=== PATIENT | male | born 1960 | race Caucasian/White ===

== ENCOUNTER 2016-07-22 10:21 | Emergency (ER) | payer MEDICAID | END 2016-07-22 13:53 | disposition home or self-care (01) | DX: R60.0 Localized edema (principal); E11.42 Type 2 diabetes mellitus with diabetic polyneuropathy; K04.7 Periapical abscess without sinus; I10 Essential (primary) hypertension; Z79.84 Long term (current) use of oral hypoglycemic drugs; F17.200 Nicotine dependence, unspecified, uncomplicated ==

== ENCOUNTER 2017-02-26 13:33 | Outpatient (CLI) | payer MEDICAID ==
[2017-02-26 19:05] LABS: BASOPHILS # (AUTO) 0.1 10^3/uL (0.0-0.1); EOSINOPHILS # (AUTO) 0.4 10^3/uL (0.0-0.7); MEAN PLATELET VOLUME 7.6 fL (7.4-11.4); NEUTROPHILS % (AUTO) 56.9 %; NUCLEATED RED BLOOD CELLS AUTO 0.1 /100WBC
[2017-02-26 19:07] LABS: BASOPHILS % (AUTO) 1.1 %; EOSINOPHILS % (AUTO) 4.2 %; HCT - HEMATOCRIT 45.6 % (42.0-52.0); HGB - HEMOGLOBIN 15.4 g/dL (14.0-18.0); LYMPHOCYTES # (AUTO) 2.6 10^3/uL (1.5-3.5); LYMPHOCYTES % (AUTO) 29.4 %; MEAN CORPUSCULAR HEMOGLOBIN 30.9 pg (27.0-31.0); MEAN CORPUSCULAR HGB CONC 33.8 g/dL (32.0-36.0); MEAN CORPUSCULAR VOLUME 91.3 fL (80.0-94.0); MONOCYTES # (AUTO) 0.7 10^3/uL (0.0-1.0); MONOCYTES % (AUTO) 8.4 %; RED CELL DISTRIBUTION WIDTH 13.2 % (12.0-15.0); UNCORRECTED WHITE BLOOD COUNT 8.7 x10^3/uL; WHITE BLOOD COUNT 8.7 x10^3/uL (4.8-10.8)
[2017-02-26 19:40] LABS: ALBUMIN/GLOBULIN RATIO 1.3 (1.0-2.2); BILIRUBIN,TOTAL 0.6 mg/dL (0.2-1.0); BUN - BLOOD UREA NITROGEN 19 mg/dL (6-20); CALCIUM 8.9 mg/dL (8.5-10.3); CARBON DIOXIDE - CO2 26 mmol/L (21-32); CHLORIDE 106 mmol/L (101-111); CHOL/HDL RATIO 4.4 (<5.0); CHOLESTEROL 145 mg/dL; CREATININE 0.8 mg/dL (0.6-1.2); GFR - MDRD 100 (>89); GLUCOSE 92 mg/dL (70-100); HDL CHOLESTEROL 33 mg/dL; LDL/HDL RATIO 2.5 (<3.6); SODIUM 138 mmol/L (135-145); TOTAL PROTEIN 7.1 g/dL (6.7-8.2); TRIGLYCERIDES 142 mg/dL; VLDL CHOLESTEROL 28 mg/dL
[2017-02-26 20:14] LABS: HEMOGLOBIN A1C 0.73 g/dL
== END 2017-02-26 13:34 | disposition home or self-care (01) ==
LOC: LAB.N 13:33
PROVIDERS: ATTEND Nurse Practitioner Gerontology
DX: E11.9 Type 2 diabetes mellitus without complications (principal)
CPT/HCPCS: 36415; 80053; 80061; 82043; 83036; 85025

== ENCOUNTER 2017-08-29 00:39 | Emergency (ER) | payer MEDICAID ==
[2017-08-29] MEDS ORDERED: ASPIRIN CHEW 81 MG TABLET PO STA (00:54)
[2017-08-29] MEDS ORDERED: hydrALAZINE INJ 20 MG/ML VIAL IVP STA (00:55)
[2017-08-29] MEDS ORDERED: ONDANSETRON ODT 4 MG TABLET TL STA (01:09)
[2017-08-29 01:14] LABS: EOSINOPHILS # (AUTO) 0.5 10^3/uL (0.0-0.7); HGB - HEMOGLOBIN 17.7 g/dL (14.0-18.0); MEAN CORPUSCULAR HGB CONC 36.1 g/dL (32.0-36.0); MEAN PLATELET VOLUME 7.7 fL (7.4-11.4)
[2017-08-29 01:17] LABS: BASOPHILS % (AUTO) 0.3 %; EOSINOPHILS % (AUTO) 2.9 %; LYMPHOCYTES # (AUTO) 4.4 10^3/uL (1.5-3.5); LYMPHOCYTES % (AUTO) 27.7 %; MEAN CORPUSCULAR HEMOGLOBIN 31.6 pg (27.0-31.0); MEAN CORPUSCULAR VOLUME 87.6 fL (80.0-94.0); MONOCYTES # (AUTO) 1.3 10^3/uL (0.0-1.0); MONOCYTES % (AUTO) 8.2 %; NEUTROPHILS # (AUTO) 9.7 10^3/uL (1.5-6.6); NEUTROPHILS % (AUTO) 60.9 %; PLT - PLATELET COUNT 292 10^3/uL (130-450); RED BLOOD COUNT 5.62 10^6/uL (4.70-6.10); RED CELL DISTRIBUTION WIDTH 13.2 % (12.0-15.0); WHITE BLOOD COUNT 15.9 x10^3/uL (4.8-10.8)
--- NOTE | 2017-08-29 01:17 | ED Physician Documentation ---
PD HPI CHEST PAIN - Stated complaint Stated Complaint: CHEST PAIN,NAUSEA,FATIGUE - Chief complaint Chief Complaint: Cardiac - History obtained from History obtained from: Patient - History of Present Illness Timing - onset: How many days ago (3) Timing - onset during: Rest Timing - details: Intermittant, Waxing and waning Quality: Pressure, Tightness Location: Substernal, Left chest, Right chest Worsened by: No: Exertion, Inspiration, Eating Associated symptoms: Nausea, General Weakness. No: Shortness of air, Diaphoresis, Vomiting Similar symptoms before: Work up / diagnostics Recently seen: Not recently seen - Additional information Additional information: Patient is a 57 year old male with a history of diabetes, and hypertension who smokes 2 packs a day who is presenting to the emergency department for chest pain. patient states that for the last three days he has had intermittent substernal chest pain. It normally gets better when he is active and worse when he lies down. Patient states that he also has some associated nausea. Patient reports that he had been out of his lisinopril but he just got it back today. Review of Systems Constitutional: denies: Fever, Chills Eyes: denies: Decreased vision, Photophobia Ears: denies: Ear pain Nose: denies: Congestion Throat: reports: Oral lesions / sores Cardiac: reports: Chest pain / pressure. denies: Palpitations Respiratory: denies: Dyspnea, Cough, Wheezing GI: reports: Abdominal Pain, Nausea, Diarrhea. denies: Vomiting : denies: Dysuria, Frequency, Hesitancy Skin: denies: Rash, Lesions Musculoskeletal: reports: Back pain Neurologic: denies: Focal weakness, Numbness, Headache, Head injury, LOC Immunocompromised: denies: Immunocompromised PD PAST MEDICAL HISTORY - Past Medical History Cardiovascular: Hypertension Respiratory: COPD Endocrine/Autoimmune: Type 2 diabetes GI: None : None HEENT: None Psych: Depression Musculoskeletal: None Derm: None - Past Surgical History Past Surgical History: Yes Ortho: Shoulder arthroplasty - Present Medications Home Medications: Ambulatory Orders Medication Instructions Recorded Confirmed RX: Gabapentin 300 mg PO BID #40 solution 07/22/16 RX: hydroCHLOROthiazide 25 mg PO DAILY #15 tablet 07/22/16 [Hydrochlorothiazide] RX: metFORMIN [Glucophage] 1,000 mg ORAL BID #120 tablet 07/22/16 Aripiprazole [Abilify] 20 mg PO DAILY 08/29/17 08/29/17 Ondansetron Odt [Zofran] 4 mg TL Q6H PRN #14 tablet 08/29/17 RX: Chlorhexidine Gluconate 15 ml MM TID #1 mouthwash 08/29/17 RX: Lisinopril 10 mg PO DAILY 08/29/17 08/29/17 RX: raNITIdine [Zantac] 150 mg PO DAILY 08/29/17 08/29/17 - Allergies Allergies/Adverse Reactions: Allergies Allergy/AdvReac Type Severity Reaction Status Date / Time No Known Drug Allergies Allergy Verified 08/29/17 00:46 - Social History Does the pt smoke?: Yes Smoking Status: Current every day smoker Does the pt drink ETOH?: No Does the pt have substance abuse?: No - Immunizations Immunizations are current?: Yes PD ED PE NORMAL - Vitals Vital signs reviewed: Yes - General General: Alert and oriented X 3 - HEENT HEENT: Atraumatic, PERRL - Neck Neck: Supple, no meningeal sign, No JVD - Cardiac Cardiac: RRR, No murmur - Respiratory Respiratory: No respiratory distress - Abdomen Abdomen: Soft, Non distended - Extremities Extremities: No deformity, No edema, No calf tenderness / cord - Neuro Neuro: Alert and oriented X 3, No motor deficit, Normal speech Eye Opening: Spontaneous Motor: Obeys Commands Verbal: Oriented GCS Score: 15 PD ED PE EXPANDED - General General: Alert, Disheveled, poorly kept, Other - HEENT HEENT: Dental decay. No: Dental TTP, Dental abscess - Derm Derm: Other (multiple tobacco stains on hands) Results - Vitals Vitals: Vital Signs - 24 hr 08/29/17 08/29/17 08/29/17 00:43 01:06 01:14 Temperature 36.4 C L Heart Rate 73 72 77 Respiratory 16 18 15 Rate Blood Pressure 173/100 H 165/104 H 134/86 H O2 Saturation 98 98 98 08/29/17 08/29/17 08/29/17 01:19 01:29 02:11 Temperature Heart Rate 74 76 70 Respiratory 18 16 18 Rate Blood Pressure 131/91 H 106/89 H 131/85 H O2 Saturation 97 97 97 Oxygen O2 Source Room air - EKG (time done) 0047 Rate: Rate (enter#) (72) Rhythm: NSR [place]: Normal Intervals: Normal TN QRS: Normal Ischemia: Normal ST segments Compare to prior EKG: Unchanged from prior EKG - Labs Labs: Laboratory Tests 08/29/17 08/29/17 08/29/17 00:50 00:50 00:50 WBC 15.9 H RBC 5.62 Hgb 17.7 Hct 49.2 MCV 87.6 MCH 31.6 H MCHC 36.1 H RDW 13.2 Plt Count 292 MPV 7.7 Neut # 9.7 H Lymph # 4.4 H [place] # 1.3 H Eos # 0.5 Baso # 0.0 Absolute Nucleated RBC 0.00 Nucleated RBC % 0.0 Sodium 135 Potassium 3.2 L Chloride 98 L Carbon Dioxide 27 Anion Gap 10.0 BUN 14 Creatinine 0.7 Estimated GFR (MDRD) 117 Glucose 136 H POC Whole Bld Glucose Calcium 9.0 Total Bilirubin 0.5 AST 13 ALT 11 Alkaline Phosphatase 64 Troponin I < 0.04 B-Natriuretic Peptide Total Protein 7.5 Albumin 4.2 Globulin 3.3 Albumin/Globulin Ratio 1.3 Lipase 16 L TSH Ethyl Alcohol < 5.0 08/29/17 08/29/17 08/29/17 00:50 00:50 00:55 WBC RBC Hgb Hct MCV MCH MCHC RDW Plt Count MPV Neut # Lymph # [place] # Eos # Baso # Absolute Nucleated RBC Nucleated RBC % Sodium Potassium Chloride Carbon Dioxide Anion Gap BUN Creatinine Estimated GFR (MDRD) Glucose POC Whole Bld Glucose 143 H Calcium Total Bilirubin AST ALT Alkaline Phosphatase Troponin I B-Natriuretic Peptide 30 Total Protein Albumin Globulin Albumin/Globulin Ratio Lipase TSH 3.23 Ethyl Alcohol - Rads (name of study) chest x-ray Radiology: Final report received (normal) PD MEDICAL DECISION MAKING - ED course Complexity details: reviewed old records, reviewed results, re-evaluated patient , considered differential, d/w patient ED course: Patient was seen and examined at bedside. ekg was performed and was normal sinus. IV access was gained and labs were drawn. patient was treated with aspirin and hydralizine 10mg. chest x-ray was ordered and was within normal limits. Patient's diagnostics were all within normal limits aside from a leukocytosis. When asked about possible infectious sources patient did have very terrible dentition but no drainable abscess. patient also has had nausea and diarrhea the last week. Patient had a HEART score of 3. Patient required no further inpatient work up at this time and was stable for discharge with outpatient follow up. Departure - Departure Disposition: 01 Home, Self Care Clinical Impression: Atypical chest pain Condition: Good Instructions: ED Chest Pain Atypical Unkn Cause Follow-Up: Olga Ferguson ARNP [Primary Care Provider] - Within 3 Days Prescriptions: RX: Chlorhexidine Gluconate 15 ml MM TID #1 mouthwash Ondansetron Odt [Zofran] 4 mg TL Q6H PRN #14 tablet PRN Reason: Nausea / Vomiting Comments: Your diagnostics today were within normal limits. That being said it is only a snapshot in time and it is important that you follow up with your doctor for an echocardiogram and a stress test. You have been prescribed anti nausea medicine and antibiotic mouth wash. You should return to the emergency department for new, worsening or uncontrollable symptoms. Discharge Date/Time: 08/29/17 02:27
--- NOTE | 2017-08-29 01:19 | XRAY Preliminary Report ---
Exam: XR CHEST 1 VIEW X-RAY IMPRESSION: 1. No acute abnormality seen in the chest. [facility] SITE ID: [id number]
--- NOTE | 2017-08-29 01:19 | XRAY Report ---
EXAM: CHEST RADIOGRAPHY EXAM DATE: 08/29/2017 01:07 AM. CLINICAL HISTORY: Chest pain. COMPARISON: 07/22/2016. TECHNIQUE: 1 view. FINDINGS: Lungs/Pleura: No alveolar consolidation or pleural effusion seen. No pneumothorax. Mediastinum: Within exam limitations, the cardiomediastinal contour is normal. Other: None. IMPRESSION: 1. No acute abnormality seen in the chest. [facility] Referring Provider Line: [phone] SITE ID: [id number]
[2017-08-29 01:23] LABS: ALBUMIN 4.2 g/dL (3.2-5.5); ALBUMIN/GLOBULIN RATIO 1.3 (1.0-2.2); ALKALINE PHOSPHATASE 64 IU/L (42-121); ALT ALANINE AMINOTRANSFERASE 11 IU/L (10-60); AST ASPARTATE AMINOTRANSFERASE 13 IU/L (10-42); BILIRUBIN,TOTAL 0.5 mg/dL (0.2-1.0); BUN - BLOOD UREA NITROGEN 14 mg/dL (6-20); CARBON DIOXIDE - CO2 27 mmol/L (21-32); CHLORIDE 98 mmol/L (101-111); CREATININE 0.7 mg/dL (0.6-1.2); GFR - MDRD 117 (>89); GLUCOSE 136 mg/dL (70-100); LIPASE 16 U/L (22-51); SODIUM 135 mmol/L (135-145); TOTAL PROTEIN 7.5 g/dL (6.7-8.2)
[2017-08-29 02:12] VITALS: BP 131/85
== END 2017-08-29 02:27 | disposition home or self-care (01) ==
LOC: ED 00:39
DX: R07.89 Other chest pain (principal); E11.9 Type 2 diabetes mellitus without complications; Z79.84 Long term (current) use of oral hypoglycemic drugs; I10 Essential (primary) hypertension; F17.200 Nicotine dependence, unspecified, uncomplicated
CPT/HCPCS: 36415; 71045; 80053; 80320; 83690; 83880; 84443; 84484; 85025; 93005; 96374; 99284; 99285; A9270; Q0162

== ENCOUNTER 2017-09-22 17:15 | Emergency (ER) | payer MEDICAID ==
[2017-09-22] MEDS ORDERED: SODIUM CHLORIDE 0.9% 1,000 ML IV ONE (17:34)
[2017-09-22] MEDS ORDERED: IPRATROPIUM/ALBUTEROL 3 ML NEB INH STA (17:34)
--- NOTE | 2017-09-22 17:37 | ED Physician Documentation ---
History of Present Illness - Stated complaint Stated Complaint: FATIGUE/SIDE PX/GRAHAM - Chief complaint Chief Complaint: General - History obtained from History obtained from: Patient - History of Present Illness Pain level max: 2 Pain level now: 2 Improved by: rest Worsened by: exertion - Additonal information Additional information: Patient is a 57-year-old male with a history of COPD and diabetes who presents to the emergency department feeling more tired and weak than usual today. He states he just wants to sleep. Feels like he is "coming down with something". No fevers. Has had rhinorrhea, congestion and cough. Also states has had chest pain for several months. Was seen here previously for this but never followed up with his doctor. When asked him why he did not follow up he said " I just had other things that I kept needing to do". Patient has never had a cardiac stress test. No recent travels. Still smoking 2 packs per day. Occasionally uses his inhaler "when I need it". Review of Systems Ten Systems: 10 systems reviewed and negative Constitutional: denies: Fever, Chills Ears: denies: Ear pain Nose: reports: Rhinorrhea / runny nose, Congestion Throat: denies: Sore throat Cardiac: reports: Chest pain / pressure (intermittent, aching, 1-2/) Respiratory: reports: Dyspnea, Cough, Wheezing GI: denies: Abdominal Pain, Nausea, Vomiting, Diarrhea Skin: denies: Rash Musculoskeletal: denies: Neck pain, Back pain Neurologic: denies: Headache PD PAST MEDICAL HISTORY - Past Medical History Past Medical History: Yes Cardiovascular: Hypertension Respiratory: COPD Neuro: Peripheral neuropathy Endocrine/Autoimmune: Type 2 diabetes GI: GERD, Other : None HEENT: None Psych: Depression Musculoskeletal: None Derm: None Other Past Medical History: IBS - Past Surgical History Past Surgical History: Yes Ortho: Shoulder arthroplasty - Present Medications Home Medications: Ambulatory Orders Medication Instructions Recorded Confirmed metFORMIN [Glucophage] 1,000 mg ORAL BID #120 tablet 07/22/16 09/22/17 Aripiprazole [Abilify] 20 mg PO DAILY 08/29/17 09/22/17 Lisinopril 10 mg PO DAILY 08/29/17 08/29/17 raNITIdine [Zantac] 150 mg PO DAILY 08/29/17 08/29/17 Albuterol Sulf [Ventolin Hfa 1 - 2 puffs INH Q4HR PRN #1 inhaler 09/22/17 Inhaler] - Allergies Allergies/Adverse Reactions: Allergies Allergy/AdvReac Type Severity Reaction Status Date / Time codeine AdvReac Itching Verified 09/22/17 17:22 - Social History Does the pt smoke?: Yes Smoking Status: Current every day smoker Does the pt drink ETOH?: No Does the pt have substance abuse?: Yes Substance Use and Type: Marijuana - Immunizations Immunizations are current?: No - POLST Patient has POLST: No PD ED PE NORMAL - Vitals Vital signs reviewed: Yes - General General: Alert and oriented X 3, No acute distress, Well developed/nourished - HEENT HEENT: PERRL, Moist mucous membranes - Neck Neck: Supple, no meningeal sign, No adenopathy - Cardiac Cardiac: RRR, Strong equal pulses - Respiratory Respiratory: No respiratory distress, Clear bilaterally - Abdomen Abdomen: Soft, Non tender, Non distended - Back Back: No CVA TTP, No spinal TTP - Derm Derm: Warm and dry - Extremities Extremities: No edema, No calf tenderness / cord - Neuro Neuro: Alert and oriented X 3 - Psych Psych: Normal mood, Normal affect Results - Vitals Vitals: Vital Signs - 24 hr 09/22/17 09/22/17 09/22/17 17:18 17:49 19:57 Temperature 36.6 C Heart Rate 81 76 77 Respiratory 18 18 18 Rate Blood Pressure 121/74 118/76 O2 Saturation 96 95 Oxygen O2 Source Room air - Labs Labs: Laboratory Tests 09/22/17 09/22/17 09/22/17 17:41 17:41 17:41 WBC 9.2 RBC 5.20 Hgb 16.2 Hct 46.6 MCV 89.5 MCH 31.2 H MCHC 34.8 RDW 12.9 Plt Count 227 MPV 7.3 L Neut # 7.4 H Lymph # 0.7 L [place] # 0.8 Eos # 0.2 Baso # 0.1 Absolute Nucleated RBC 0.00 Nucleated RBC % 0.0 Sodium 136 Potassium 3.8 Chloride 101 Carbon Dioxide 27 Anion Gap 8.0 BUN 13 Creatinine 0.8 Estimated GFR (MDRD) 100 Glucose 123 H POC Whole Bld Glucose Calcium 8.9 Total Bilirubin 0.5 AST 11 ALT 16 Alkaline Phosphatase 56 Troponin I < 0.04 Total Protein 7.3 Albumin 3.9 Globulin 3.4 Albumin/Globulin Ratio 1.1 Lipase 23 Urine Color Urine Clarity Urine pH Ur Specific [place] Urine Protein Urine Glucose (UA) Urine Ketones Urine Occult Blood Urine Nitrite Urine Bilirubin Urine Urobilinogen Ur Leukocyte Esterase Ur Microscopic Review Urine Culture Comments Influenza A (Rapid) Influenza B (Rapid) 09/22/17 09/22/17 09/22/17 18:01 18:16 19:20 WBC RBC Hgb Hct MCV MCH MCHC RDW Plt Count MPV Neut # Lymph # [place] # Eos # Baso # Absolute Nucleated RBC Nucleated RBC % Sodium Potassium Chloride Carbon Dioxide Anion Gap BUN Creatinine Estimated GFR (MDRD) Glucose POC Whole Bld Glucose 114 H Calcium Total Bilirubin AST ALT Alkaline Phosphatase Troponin I Total Protein Albumin Globulin Albumin/Globulin Ratio Lipase Urine Color YELLOW Urine Clarity CLEAR Urine pH 6.5 Ur Specific [place] 1.010 Urine Protein NEGATIVE Urine Glucose (UA) NEGATIVE Urine Ketones NEGATIVE Urine Occult Blood TRACE-LYSE Urine Nitrite NEGATIVE Urine Bilirubin NEGATIVE Urine Urobilinogen 0.2 (NORMAL) Ur Leukocyte Esterase NEGATIVE Ur Microscopic Review NOT INDICATED Urine Culture Comments NOT INDICATED Influenza A (Rapid) Negative Influenza B (Rapid) Negative - Rads (name of study) cxr Radiology: Prelim report reviewed, EMP read contemporaneously, See rad report ( no acute disease) PD MEDICAL DECISION MAKING - ED course Complexity details: reviewed results, re-evaluated patient, considered differential, d/w patient ED course: Patient is a 57-year-old male who presents to the emergency department with what appears to be a viral syndrome. He is well-appearing, nontoxic. Feels better after nebulizer treatment and IV fluids. Tolerating p.o. without difficulty. Abdomen is soft, nontender nondistended. Patient counseled to stop smoking. We will continue supportive care and follow-up with his doctor. No hypoxia. No respiratory distress. Patient counseled regarding signs and symptoms for which I believe and urgent re-evaluation would be necessary. Patient with good understanding of and agreement to plan and is comfortable going home at this time This document was made in part using voice recognition software. While efforts are made to proofread this document, sound alike and grammatical errors may occur. Departure - Departure Disposition: 01 Home, Self Care Clinical Impression: Dehydration, Viral syndrome Condition: Good Instructions: ED Dehydration, ED Viral Syndrome Follow-Up: Olga Ferguson ARNP [Primary Care Provider] - Within 1 week Prescriptions: Albuterol Sulf [Ventolin Hfa Inhaler] 1 - 2 puffs INH Q4HR PRN #1 inhaler PRN Reason: Shortness Of Air/Wheezing Comments: Return if you worsen. Drink plenty of fluids and rest. Discharge Date/Time: 09/22/17 19:58
[2017-09-22 17:46] LABS: BASOPHILS # (AUTO) 0.1 10^3/uL (0.0-0.1); BASOPHILS % (AUTO) 0.9 %; EOSINOPHILS # (AUTO) 0.2 10^3/uL (0.0-0.7); EOSINOPHILS % (AUTO) 2.1 %; HGB - HEMOGLOBIN 16.2 g/dL (14.0-18.0); LYMPHOCYTES # (AUTO) 0.7 10^3/uL (1.5-3.5); LYMPHOCYTES % (AUTO) 7.9 %; MEAN CORPUSCULAR HEMOGLOBIN 31.2 pg (27.0-31.0); MEAN CORPUSCULAR HGB CONC 34.8 g/dL (32.0-36.0); MEAN CORPUSCULAR VOLUME 89.5 fL (80.0-94.0); MEAN PLATELET VOLUME 7.3 fL (7.4-11.4); MONOCYTES # (AUTO) 0.8 10^3/uL (0.0-1.0); MONOCYTES % (AUTO) 8.3 %; NEUTROPHILS # (AUTO) 7.4 10^3/uL (1.5-6.6); NEUTROPHILS % (AUTO) 80.8 %; PLT - PLATELET COUNT 227 10^3/uL (130-450); RED CELL DISTRIBUTION WIDTH 12.9 % (12.0-15.0); WHITE BLOOD COUNT 9.2 x10^3/uL (4.8-10.8)
[2017-09-22 17:58] LABS: ALBUMIN 3.9 g/dL (3.2-5.5); ALBUMIN/GLOBULIN RATIO 1.1 (1.0-2.2); BILIRUBIN,TOTAL 0.5 mg/dL (0.2-1.0); CALCIUM 8.9 mg/dL (8.5-10.3); CREATININE 0.8 mg/dL (0.6-1.2); TOTAL PROTEIN 7.3 g/dL (6.7-8.2)
--- NOTE | 2017-09-22 18:02 | XRAY Report ---
EXAM: CHEST RADIOGRAPHY EXAM DATE: 09/22/2017 05:51 PM. CLINICAL HISTORY: Cough. COMPARISON: 08/29/2017 and 07/22/2016. TECHNIQUE: 2 views. FINDINGS: Lungs/Pleura: No localized infiltrate, consolidation, effusion, or pneumothorax. Mediastinum: Heart and mediastinal contours are unremarkable. Other: Degenerative changes. Chronic grade 3 AC joint separation on the right. IMPRESSION: No acute disease. [facility] Referring Provider Line: [phone] SITE ID: [id number]
[2017-09-22 19:32] LABS: BILIRUBIN,URINE NEGATIVE (NEGATIVE); GLUCOSE, URINE (UA) NEGATIVE (NEGATIVE); KETONES,URINE (UA) NEGATIVE (NEGATIVE); LEUKOCYTE ESTERASE, URINE NEGATIVE (NEGATIVE); NITRITE,URINE NEGATIVE (NEGATIVE); OCCULT BLOOD,URINE TRACE-LYSE (NEGATIVE); PH,URINE 6.5 PH (5.0-7.5); PROTEIN,URINE NEGATIVE (NEGATIVE); UROBILINOGEN,URINE 0.2 (NORMAL) E.U./dL (NORMAL)
[2017-09-22 19:34] LABS: CLARITY,URINE CLEAR (CLEAR)
[2017-09-22 19:58] VITALS: BP 118/76
== END 2017-09-22 19:58 | disposition home or self-care (01) ==
LOC: ED 17:15
DX: E86.0 Dehydration (principal); B34.9 Viral infection, unspecified; I10 Essential (primary) hypertension; E11.9 Type 2 diabetes mellitus without complications; F17.200 Nicotine dependence, unspecified, uncomplicated; Z79.84 Long term (current) use of oral hypoglycemic drugs
CPT/HCPCS: 36415; 71046; 80053; 81001; 81003; 83690; 84484; 85025; 87086; 87275; 87276; 93005; 94640; 94664; 99284

== ENCOUNTER 2018-04-02 20:58 | Emergency (ER) | payer MEDICAID ==
[2018-04-02 22:06] LABS: BASOPHILS % (AUTO) 2.8 %; HGB - HEMOGLOBIN 15.6 g/dL (14.0-18.0); LYMPHOCYTES % (AUTO) 22.1 %; MEAN CORPUSCULAR HEMOGLOBIN 31.9 pg (27.0-31.0); MEAN CORPUSCULAR HGB CONC 35.4 g/dL (32.0-36.0); MEAN CORPUSCULAR VOLUME 90.1 fL (80.0-94.0); MEAN PLATELET VOLUME 7.4 fL (7.4-11.4); MONOCYTES % (AUTO) 7.4 %; NEUTROPHILS % (AUTO) 64.7 %; PLT - PLATELET COUNT 342 10^3/uL (130-450); RED BLOOD COUNT 4.89 10^6/uL (4.70-6.10); RED CELL DISTRIBUTION WIDTH 12.9 % (12.0-15.0); WHITE BLOOD COUNT 11.7 x10^3/uL (4.8-10.8)
[2018-04-02 22:08] LABS: ABNORMAL LYMPHS % (MANUAL) 0 %
[2018-04-02 22:09] LABS: ALBUMIN 3.9 g/dL (3.2-5.5); ALBUMIN/GLOBULIN RATIO 1.3 (1.0-2.2); BILIRUBIN,TOTAL 0.8 mg/dL (0.2-1.0); CALCIUM 8.8 mg/dL (8.5-10.3); CREATININE 0.7 mg/dL (0.6-1.2)
--- NOTE | 2018-04-02 22:12 | ED Physician Documentation ---
PD HPI BACK PAIN - Stated complaint Stated Complaint: BK PX/SIDE PX - Chief complaint Chief Complaint: Back Pain - History obtained from History obtained from: Patient - History of Present Illness Timing - onset: How many days ago (6) Timing - details: Gradual onset, Intermittant, Waxing and waning Pain level max: 8 Pain level now: 3 Location: Mid, Lower, Right, Left Quality: Pain Associated symptoms: No: Fever, Weakness, Numbness, Incontinent of urine, Unable to urinate, Hematuria, Incontinent of stool Improves with: Nothing Worsened by: Other (no apparent inciting incident nor exacerbating factors) Similar symptoms before: Has not had sx before Recently seen: Not recently seen - Additional information Additional information: c/o episodic bilateral mid/lower back and flank pain that radiates around flanks to bilateral lower quadrants of abdomen Review of Systems Constitutional: denies: Fever, Chills, Sweats Cardiac: reports: Reviewed and negative Respiratory: reports: Reviewed and negative GI: reports: Abdominal Pain. denies: Nausea, Vomiting, Constipation, Diarrhea PD PAST MEDICAL HISTORY - Past Medical History Cardiovascular: Hypertension Respiratory: COPD Endocrine/Autoimmune: Type 2 diabetes GI: GERD, Other : None HEENT: None Psych: Depression Musculoskeletal: None Derm: None - Past Surgical History Past Surgical History: Yes Ortho: Shoulder arthroplasty - Present Medications Home Medications: Ambulatory Orders Medication Instructions Recorded Confirmed metFORMIN [Glucophage] 1,000 mg ORAL BID #120 tablet 07/22/16 09/22/17 Aripiprazole [Abilify] 20 mg PO DAILY 08/29/17 09/22/17 Lisinopril 10 mg PO DAILY 08/29/17 08/29/17 raNITIdine [Zantac] 150 mg PO DAILY 08/29/17 08/29/17 Albuterol Sulf [Ventolin Hfa 1 - 2 puffs INH Q4HR PRN #1 inhaler 09/22/17 Inhaler] Hydrocodone/Acetaminophen 1 - 2 each PO Q6HR PRN #14 tablet 04/03/18 [Hydrocodon-Acetaminophen 5-325] - Allergies Allergies/Adverse Reactions: Allergies Allergy/AdvReac Type Severity Reaction Status Date / Time codeine AdvReac Itching Verified 04/02/18 21:10 - Social History Does the pt smoke?: Yes Smoking Status: Current every day smoker Does the pt drink ETOH?: No Does the pt have substance abuse?: Yes - Immunizations Immunizations are current?: No - POLST Patient has POLST: No PD ED PE NORMAL - Vitals Vital signs reviewed: Yes - General General: Alert and oriented X 3, No acute distress, Well developed/nourished - Cardiac Cardiac: RRR, No murmur - Respiratory Respiratory: No respiratory distress, Clear bilaterally - Abdomen Abdomen: Soft, Non distended, Other (mild/moderate L>R LQ tenderness to palpation without rebound or guarding) - Back Back: No CVA TTP, No spinal TTP - Derm Derm: Normal color, Warm and dry, No rash Results - Vitals Vitals: Vital Signs - 24 hr 04/02/18 04/02/18 04/02/18 21:05 23:13 23:31 Temperature 36.8 C Heart Rate 82 Respiratory 17 16 16 Rate Blood Pressure 131/79 H O2 Saturation 96 04/02/18 04/03/18 04/03/18 23:47 00:19 01:00 Temperature Heart Rate 63 65 65 Respiratory 16 16 15 Rate Blood Pressure 125/79 120/81 H 103/65 O2 Saturation 95 95 96 04/03/18 04/03/18 01:32 01:38 Temperature Heart Rate 66 Respiratory 17 16 Rate Blood Pressure 128/82 H O2 Saturation 97 Oxygen O2 Source Room air - Labs Labs: Laboratory Tests 04/02/18 04/02/18 04/02/18 21:45 21:45 23:00 WBC 11.7 H RBC 4.89 Hgb 15.6 Hct 44.1 MCV 90.1 MCH 31.9 H MCHC 35.4 RDW 12.9 Plt Count 342 MPV 7.4 Neut # (Auto) Not Reportable Lymph # (Auto) Not Reportable [place] # (Auto) Not Reportable Eos # (Auto) Not Reportable Baso # (Auto) Not Reportable Absolute Nucleated RBC Not Reportable Total Counted 100 Band Neuts % (Manual) 5 Abnorm Lymph % (Manual) 0 Metamyelocytes % 1 H Nucleated RBC % Not Reportable Neutrophils # (Manual) 8.0 H Lymphocytes # (Manual) 2.9 Monocytes # (Manual) 0.7 Eosinophils # (Manual) 0.0 Basophils # (Manual) 0.0 Differential Comment MANUAL DIFFERENTIAL Manual Slide Review Indicated WBC Morphology NORMAL APPEARANCE Platelet Estimate NORMAL (130-450,000) Platelet Morphology NORMAL APPEARANCE RBC Morph Micro Appear NORMAL APPEARANCE Sodium 136 Potassium 3.4 L Chloride 100 L Carbon Dioxide 27 Anion Gap 9.0 BUN 13 Creatinine 0.7 Estimated GFR (MDRD) 116 Glucose 98 Calcium 8.8 Total Bilirubin 0.8 AST 14 ALT 13 Alkaline Phosphatase 54 Total Protein 7.0 Albumin 3.9 Globulin 3.1 Albumin/Globulin Ratio 1.3 Lipase 25 Urine Color YELLOW Urine Clarity CLEAR Urine pH 6.0 Ur Specific [place] 1.015 Urine Protein NEGATIVE Urine Glucose (UA) NEGATIVE Urine Ketones NEGATIVE Urine Occult Blood NEGATIVE Urine Nitrite NEGATIVE Urine Bilirubin NEGATIVE Urine Urobilinogen 0.2 (NORMAL) Ur Leukocyte Esterase NEGATIVE Ur Microscopic Review NOT INDICATED Urine Culture Comments NOT INDICATED - Rads (name of study) CT A/P Radiology: Prelim report reviewed, See rad report PD MEDICAL DECISION MAKING - ED course Complexity details: reviewed results, re-evaluated patient, considered diff erential, d/w patient ED course: Patient declined pain medication during ED stay. Given take-home pack of vicodin with rx for same; can use this if pain becomes more intense as it has, episodically, over the past 6 days. Departure - Departure Disposition: 01 Home, Self Care Clinical Impression: Back pain Condition: Good Instructions: ED Neck Back Pain General Follow-Up: Olga Ferguson ARNP [Primary Care Provider] - Within 1 week Prescriptions: Hydrocodone/Acetaminophen [Hydrocodon-Acetaminophen 5-325] 1 - 2 each PO Q6HR PRN #14 tablet PRN Reason: Pain Discharge Date/Time: 04/03/18 01:40
[2018-04-02 22:19] LABS: BAND NEUTROPHILS % (MANUAL) 5 %; DIFFERENTIAL COMMENT MANUAL DIFFERENTIAL; LYMPHOCYTES # (MANUAL) 2.9 10^3/uL (1.5-3.5); LYMPHOCYTES % (MANUAL) 25 %; METAMYELOCYTES % (MANUAL) 1 %; MONOCYTES # (MANUAL) 0.7 10^3/uL (0.0-1.0); NEUTROPHILS % (MANUAL) 63 %; PLATELET ESTIMATE, MANUAL NORMAL (130-450,000) (NORMAL); PLATELET MORPHOLOGY NORMAL APPEARANCE (NORMAL); RBC MORPHOLOGY (MULTIPLE) NORMAL APPEARANCE (NORMAL)
[2018-04-02 23:22] LABS: BILIRUBIN,URINE NEGATIVE (NEGATIVE); GLUCOSE, URINE (UA) NEGATIVE (NEGATIVE); KETONES,URINE (UA) NEGATIVE (NEGATIVE); LEUKOCYTE ESTERASE, URINE NEGATIVE (NEGATIVE); NITRITE,URINE NEGATIVE (NEGATIVE); OCCULT BLOOD,URINE NEGATIVE (NEGATIVE); PROTEIN,URINE NEGATIVE (NEGATIVE); UROBILINOGEN,URINE 0.2 (NORMAL) E.U./dL (NORMAL)
[2018-04-02 23:24] LABS: CLARITY,URINE CLEAR (CLEAR)
[2018-04-02] MEDS ORDERED: IOPAMIDOL-300 100 ML VIAL ONE (23:24)
[2018-04-02] MEDS ORDERED: IOPAMIDOL-300 100 ML VIAL IVP ONE (23:50)
--- NOTE | 2018-04-03 00:17 | CT Report ---
Reason: abd. pain, bilateral low Procedure Date: 04/02/2018 Accession Number: [id number] / [id number] Procedure: CT - Abdomen/Pelvis W/ CPT Code: FULL RESULT: EXAM: CT ABDOMEN AND PELVIS EXAM DATE: 04/02/2018 11:39 PM. CLINICAL HISTORY: Abdomen pain, bilateral low. COMPARISONS: Abdomen ultrasound 05/19/2013 3:06 PM. TECHNIQUE: Routine helical CT imaging was performed through the abdomen and pelvis. IV contrast: 100 mL Isovue 300. Enteric contrast: No. Reconstructions: Coronal and sagittal. In accordance with CT protocol optimization, one or more of the following dose reduction techniques were utilized for this exam: automated exposure control, adjustment of mA and/or KV based on patient size, or use of iterative reconstructive technique. FINDINGS: Lung Bases: Unremarkable. Liver: Unremarkable. No suspicious masses. Gallbladder/Bile Ducts: Unremarkable. Spleen: Unremarkable. Pancreas: Unremarkable. Adrenal Glands: Unremarkable. Kidneys: Unremarkable. No suspicious masses or hydronephrosis. Peritoneal Cavity/Bowel: No bowel obstruction or inflammatory process seen. No free air or significant free fluid. No masses or adenopathy. The appendix is normal. No excessive stool burden. Pelvic Organs: Bladder and prostate appear unremarkable. Vasculature: No aneurysms or other significant abnormality. Bones: No acute abnormality. Loss of normal lumbar lordosis and moderate degenerative changes of the lower lumbar spine. Other: Small fat-containing periumbilical hernia without apparent complication. IMPRESSION: No acute inflammatory or obstructive process seen in the abdomen or pelvis. [facility]
[2018-04-03] MEDS ORDERED: HYDROcod/ACET 5/325 Prepack 4 PO STA (01:18)
[2018-04-03 01:33] VITALS: BP 128/82
== END 2018-04-03 01:40 | disposition home or self-care (01) ==
LOC: ED 20:58
DX: M54.9 Dorsalgia, unspecified (principal); I10 Essential (primary) hypertension; E11.9 Type 2 diabetes mellitus without complications; Z79.84 Long term (current) use of oral hypoglycemic drugs; F17.200 Nicotine dependence, unspecified, uncomplicated
CPT/HCPCS: 36415; 74177; 80053; 81003; 83690; 85025; 99283; 99284; Q9967; 81001; 87086

== ENCOUNTER → 2018-04-16 | Outpatient (CLI) | payer MEDICAID ==
[2018-04-16 18:51] LABS: BASOPHILS # (AUTO) 0.1 10^3/uL (0.0-0.1); BASOPHILS % (AUTO) 1.2 %; EOSINOPHILS # (AUTO) 0.3 10^3/uL (0.0-0.7); EOSINOPHILS % (AUTO) 2.9 %; HGB - HEMOGLOBIN 16.1 g/dL (14.0-18.0); LYMPHOCYTES # (AUTO) 1.8 10^3/uL (1.5-3.5); LYMPHOCYTES % (AUTO) 21.2 %; MEAN CORPUSCULAR HEMOGLOBIN 31.7 pg (27.0-31.0); MEAN CORPUSCULAR HGB CONC 34.3 g/dL (32.0-36.0); MEAN CORPUSCULAR VOLUME 92.5 fL (80.0-94.0); MEAN PLATELET VOLUME 8.2 fL (7.4-11.4); MONOCYTES # (AUTO) 0.7 10^3/uL (0.0-1.0); MONOCYTES % (AUTO) 8.1 %; NEUTROPHILS # (AUTO) 5.7 10^3/uL (1.5-6.6); NEUTROPHILS % (AUTO) 66.6 %; PLT - PLATELET COUNT 317 10^3/uL (130-450); RED BLOOD COUNT 5.07 10^6/uL (4.70-6.10); WHITE BLOOD COUNT 8.6 x10^3/uL (4.8-10.8)
[2018-04-16 19:03] LABS: HB2 TOTAL 17.8 g/dL; HEMOGLOBIN A1C 1.07 g/dL; HEMOGLOBIN A1C % 7.7 % (4.6-6.2)
[2018-04-16 19:11] LABS: ALBUMIN/GLOBULIN RATIO 1.3 (1.0-2.2); ALKALINE PHOSPHATASE 59 IU/L (42-121); ALT ALANINE AMINOTRANSFERASE 16 IU/L (10-60); AST ASPARTATE AMINOTRANSFERASE 16 IU/L (10-42); BILIRUBIN,TOTAL 0.6 mg/dL (0.2-1.0); BUN - BLOOD UREA NITROGEN 15 mg/dL (6-20); CALCIUM 8.8 mg/dL (8.5-10.3); CARBON DIOXIDE - CO2 27 mmol/L (21-32); CHLORIDE 103 mmol/L (101-111); CHOL/HDL RATIO 5.5 (<5.0); CHOLESTEROL 177 mg/dL; CREATININE 0.7 mg/dL (0.6-1.2); GFR - MDRD 116 (>89); GLUCOSE 179 mg/dL (70-100); HDL CHOLESTEROL 32 mg/dL; LDL CHOLESTEROL,CALCULATED 88 mg/dL; LDL/HDL RATIO 2.8 (<3.6); SODIUM 139 mmol/L (135-145); TOTAL PROTEIN 7.2 g/dL (6.7-8.2); VLDL CHOLESTEROL 57 mg/dL
== END ==
LOC: LAB.N 11:29
PROVIDERS: ATTEND Nurse Practitioner Gerontology
DX: E78.2 Mixed hyperlipidemia (principal); I10 Essential (primary) hypertension; E11.9 Type 2 diabetes mellitus without complications
CPT/HCPCS: 36415; 80053; 80061; 83036; 83721; 85025

== ENCOUNTER 2018-07-22 08:00 | Outpatient (CLI) | payer MEDICAID ==
[2018-07-22 19:57] LABS: HB2 TOTAL 18.3 g/dL; HEMOGLOBIN A1C 1.07 g/dL; HEMOGLOBIN A1C % 7.5 % (4.6-6.2)
== END 2018-07-22 23:59 | disposition home or self-care (01) ==
LOC: LAB.N 08:00
PROVIDERS: ATTEND Nurse Practitioner Gerontology
DX: E11.9 Type 2 diabetes mellitus without complications (principal)
CPT/HCPCS: 36415; 83036

== ENCOUNTER 2018-07-22 11:45 | Outpatient (CLI) | payer MEDICAID | END 2018-07-22 23:59 | LOC: RT.N 11:45 | PROVIDERS: ATTEND Nurse Practitioner Gerontology | DX: R07.9 Chest pain, unspecified (principal) | CPT/HCPCS: 93005 ==

== ENCOUNTER 2019-05-23 14:32 | Outpatient (CLI) | payer MEDICAID ==
[2019-05-23 18:39] LABS: BASOPHILS % (AUTO) 0.5 %; EOSINOPHILS # (AUTO) 0.2 10^3/uL (0.0-0.7); EOSINOPHILS % (AUTO) 2.5 %; HGB - HEMOGLOBIN 16.8 g/dL (14.0-18.0); LYMPHOCYTES # (AUTO) 1.6 10^3/uL (1.5-3.5); LYMPHOCYTES % (AUTO) 21.2 %; MEAN CORPUSCULAR HEMOGLOBIN 31.1 pg (27.0-31.0); MEAN CORPUSCULAR HGB CONC 34.6 g/dL (32.0-36.0); MEAN CORPUSCULAR VOLUME 89.8 fL (80.0-94.0); MEAN PLATELET VOLUME 10.3 fL (7.4-11.4); MONOCYTES # (AUTO) 0.7 10^3/uL (0.0-1.0); MONOCYTES % (AUTO) 9.5 %; NEUTROPHILS % (AUTO) 65.6 %; PLT - PLATELET COUNT 251 10^3/uL (130-450); RED CELL DISTRIBUTION WIDTH 11.8 % (12.0-15.0); WHITE BLOOD COUNT 7.6 x10^3/uL (4.8-10.8)
[2019-05-23 19:07] LABS: HB2 TOTAL 16.6 g/dL; HEMOGLOBIN A1C 1.14 g/dL; HEMOGLOBIN A1C % 8.4 % (4.6-6.2)
[2019-05-23 19:34] LABS: ALBUMIN 4.1 g/dL (3.2-5.5); ALBUMIN/GLOBULIN RATIO 1.2 (1.0-2.2); ALKALINE PHOSPHATASE 66 IU/L (42-121); ALT ALANINE AMINOTRANSFERASE 18 IU/L (10-60); AST ASPARTATE AMINOTRANSFERASE 18 IU/L (10-42); BUN - BLOOD UREA NITROGEN 18 mg/dL (6-20); CALCIUM 9.1 mg/dL (8.5-10.3); CARBON DIOXIDE - CO2 27 mmol/L (21-32); CHLORIDE 99 mmol/L (101-111); CHOL/HDL RATIO 6.7 (<5.0); CHOLESTEROL 187 mg/dL; CREATININE 0.8 mg/dL (0.6-1.2); GFR - MDRD 99 (>89); GLUCOSE 212 mg/dL (70-100); HDL CHOLESTEROL 28 mg/dL; LDL CHOLESTEROL,CALCULATED 86 mg/dL; LDL/HDL RATIO 3.1 (<3.6); SODIUM 136 mmol/L (135-145); TOTAL PROTEIN 7.6 g/dL (6.7-8.2); VLDL CHOLESTEROL 73 mg/dL
== END 2019-05-23 23:59 | disposition home or self-care (01) ==
LOC: LAB.N 14:32
PROVIDERS: ATTEND Nurse Practitioner Gerontology
DX: E11.40 Type 2 diabetes mellitus with diabetic neuropathy, unspecified (principal); E78.2 Mixed hyperlipidemia; I10 Essential (primary) hypertension; F10.10 Alcohol abuse, uncomplicated; J44.9 Chronic obstructive pulmonary disease, unspecified
CPT/HCPCS: 36415; 80050; 80061; 83036; 83721

== ENCOUNTER 2019-05-29 14:52 | Outpatient (CLI) | payer MEDICAID ==
--- NOTE | 2019-05-29 15:50 | CT Report ---
Reason: TOBACCO ABUSE CONTINUOUS Procedure Date: 05/29/2019 Accession Number: [id number] / [id number] Procedure: CT - Low Dose Lung Cancer Screen CPT Code: Final Report FULL RESULT: EXAM CT LUNG SCREEN EXAM DATE: 05/29/2019 03:03 PM. HISTORY: 58-year-old patient with [id number] smoking history. Currently smoking: Yes. COMPARISON: None. TECHNIQUE: CT examination of the entire thorax without contrast was performed using low-dose technique. Thin section coronal, axial, sagittal and MIP axial images were obtained. In accordance with CT protocol optimization, one or more of the following dose reduction techniques were utilized for this exam: automated exposure control, adjustment of mA and/or KV based on patient size, or use of iterative reconstructive technique. FINDINGS: Nodules: Right upper lobe: None. Right middle lobe: 3 mm nodule image 71 series 4. Right lower lobe: None. Left upper lobe: None. Left lower lobe: None. Emphysema: None. Pleura: Unremarkable. Aorta: Mildly calcified. Mediastinum: Unremarkable. Coronary calcifications: Moderate. Other pulmonary findings: None. Other extrapulmonary findings: None. IMPRESSION: Lung-RADS ASSESSMENT CATEGORY: 2 - benign appearance of behavior. Probability of malignancy: Less than 1%. RECOMMENDATION: Continue annual low-dose screening CT. [facility]
== END 2019-05-29 14:53 | disposition home or self-care (01) ==
LOC: DI 14:52
PROVIDERS: ATTEND Nurse Practitioner Gerontology
DX: Z12.2 Encounter for screening for malignant neoplasm of respiratory organs (principal); F17.210 Nicotine dependence, cigarettes, uncomplicated

== ENCOUNTER 2019-12-26 13:50 | Emergency (ER) | payer MEDICAID ==
--- NOTE | 2019-12-26 13:54 | ED Physician Documentation ---
PD HPI HEENT - Stated complaint Stated Complaint: RT SIDE JAW PX - History obtained from History obtained from: Patient - History of Present Illness Timing - onset: How many days ago (few) Timing - duration: Days (few) Timing - details: Gradual onset, Still present Location: Tooth (right lower bicuspid, with pain and swelling over few days, large area of fluctuance that started draining today.) Review of Systems Constitutional: reports: Myalgias. denies: Fever, Chills Nose: denies: Rhinorrhea / runny nose, Congestion Throat: reports: Dental pain / toothache, Oral lesions / sores. denies: Sore throat Respiratory: denies: Cough GI: denies: Nausea, Vomiting Skin: denies: Rash, Lesions PD PAST MEDICAL HISTORY - Past Medical History Cardiovascular: Hypertension Respiratory: COPD Neuro: None Endocrine/Autoimmune: Type 2 diabetes GI: GERD, Other : None HEENT: None Psych: Depression Musculoskeletal: None Derm: None - Past Surgical History Past Surgical History: Yes Ortho: Shoulder arthroplasty - Present Medications Home Medications: Ambulatory Orders Medication Instructions Recorded Confirmed metFORMIN [Glucophage] 1,000 mg ORAL BID #120 tablet 07/22/16 09/22/17 Aripiprazole [Abilify] 20 mg PO DAILY 08/29/17 09/22/17 lisinopriL [Lisinopril] 10 mg PO DAILY 08/29/17 08/29/17 raNITIdine [Zantac] 150 mg PO DAILY 08/29/17 08/29/17 Albuterol Sulf [Ventolin Hfa 1 - 2 puffs INH Q4HR PRN #1 inhaler 09/22/17 Inhaler] Hydrocodone/Acetaminophen 1 - 2 each PO Q6HR PRN #14 tablet 04/03/18 [Hydrocodon-Acetaminophen 5-325] Chlorhexidine Gluconate [Peridex] 15 ml MM TID #118 ml 12/26/19 Clindamycin HCl [Clindamycin 300MG 300 mg PO TID #20 capsule 12/26/19 CAP] Ibuprofen [Motrin] 600 mg PO TID PRN #25 tab 12/26/19 Oxycodone HCl/Acetaminophen 1 each PO Q8H PRN #15 tablet 12/26/19 [Percocet 5-325 mg Tablet] - Allergies Allergies/Adverse Reactions: Allergies Allergy/AdvReac Type Severity Reaction Status Date / Time codeine AdvReac Itching Verified 12/26/19 13:56 - Social History Does the pt smoke?: Yes Smoking Status: Current every day smoker Does the pt drink ETOH?: No Does the pt have substance abuse?: Yes - Immunizations Immunizations are current?: No - POLST Patient has POLST: No PD ED PE NORMAL - Vitals Vital signs reviewed: Yes - General General: Alert and oriented X 3, No acute distress, Well developed/nourished - HEENT HEENT: Moist mucous membranes, Pharynx benign. No: Dentition benign (swelling and tenderness right lower gum, with small draining hole and no residual fluctuance. ) - Neck Neck: Supple, no meningeal sign, No adenopathy - Cardiac Cardiac: No murmur. No: RRR (regular but mild tachycardia. ) - Respiratory Respiratory: Clear bilaterally - Derm Derm: Normal color, Warm and dry - Neuro Neuro: Alert and oriented X 3, No motor deficit, Normal speech Results - Vitals Vitals: Vital Signs - 24 hr 12/26/19 13:54 Temperature 36.8 C Heart Rate 105 H Respiratory 22 Rate Blood Pressure 144/112 H O2 Saturation 97 Oxygen O2 Source Room air PD MEDICAL DECISION MAKING - ED course Complexity details: considered differential (abscess that is already draining. ), d/w patient Departure - Departure Disposition: 01 Home, Self Care Clinical Impression: Dental abscess Condition: Stable Record reviewed to determine appropriate education?: Yes Instructions: ED Abscess Dental Prescriptions: Clindamycin HCl [Clindamycin 300MG CAP] 300 mg PO TID #20 capsule Ibuprofen [Motrin] 600 mg PO TID PRN #25 tab PRN Reason: Pain Oxycodone HCl/Acetaminophen [Percocet 5-325 mg Tablet] 1 each PO Q8H PRN #15 tablet PRN Reason: pain Chlorhexidine Gluconate [Peridex] 15 ml MM TID #118 ml Comments: Rinse with antiseptic mouth rinse couple times a day. Use the ibuprofen anti-in flammatory 3 times a day with food for the next week. Add clindamycin antibiotic 3 times a day for a week as well. To this add Tylenol every 4 hours if needed for pain or Percocet if needed for worse pain. Recheck if not improving well over the next several days. Follow-up with dental clinic regarding more definitive care of the teeth and gums. Discharge Date/Time: 12/26/19 14:34
[2019-12-26 13:56] VITALS: BP 144/112
[2019-12-26] MEDS ORDERED: IBUPROFEN 600 MG TABLET PO STA (14:07)
[2019-12-26] MEDS ORDERED: CLINDAMYCIN 150 MG CAPSULE PO STA (14:07)
[2019-12-26] MEDS ORDERED: oxyCODONE 5 MG TABLET PO STA (14:07)
[2019-12-26] MEDS ORDERED: ACETAMINOPHEN 325 MG TABLET PO STA (14:07)
== END 2019-12-26 14:34 | disposition home or self-care (01) ==
LOC: ED 13:50
DX: K04.7 Periapical abscess without sinus (principal); I10 Essential (primary) hypertension; E11.9 Type 2 diabetes mellitus without complications; F17.200 Nicotine dependence, unspecified, uncomplicated; Z79.84 Long term (current) use of oral hypoglycemic drugs
CPT/HCPCS: 99283; 99284; A9270

== ENCOUNTER 2020-02-19 19:01 | Outpatient (CLI) | payer MEDICAID | END 2020-02-19 23:59 | disposition short-term general hospital (02) | LOC: EMS 19:01 | PROVIDERS: ATTEND Surgery | DX: R53.1 Weakness (principal); M79.602 Pain in left arm; M79.601 Pain in right arm; R07.9 Chest pain, unspecified | CPT/HCPCS: A0425; A0433; A0999 ==

== ENCOUNTER 2020-02-25 13:59 | Emergency (ER) | payer MEDICAID ==
[2020-02-25 14:22] LABS: BASOPHILS # (AUTO) 0.1 10^3/uL (0.0-0.1); BASOPHILS % (AUTO) 0.9 %; EOSINOPHILS # (AUTO) 0.3 10^3/uL (0.0-0.7); EOSINOPHILS % (AUTO) 2.9 %; LYMPHOCYTES # (AUTO) 2.6 10^3/uL (1.5-3.5); LYMPHOCYTES % (AUTO) 23.8 %; MEAN CORPUSCULAR HGB CONC 34.5 g/dL (32.0-36.0); MEAN PLATELET VOLUME 9.5 fL (7.4-11.4); MONOCYTES % (AUTO) 9.6 %; NEUTROPHILS # (AUTO) 6.7 10^3/uL (1.5-6.6); NEUTROPHILS % (AUTO) 61.8 %; PLT - PLATELET COUNT 334 10^3/uL (130-450); RED BLOOD COUNT 5.48 10^6/uL (4.70-6.10); RED CELL DISTRIBUTION WIDTH 11.9 % (12.0-15.0); WHITE BLOOD COUNT 10.9 x10^3/uL (4.8-10.8)
--- NOTE | 2020-02-25 14:37 | ED Physician Documentation ---
PD HPI CHEST PAIN - Stated complaint Stated Complaint: HIGH BLOOD SUGAR - Chief complaint Chief Complaint: Cardiac - History obtained from History obtained from: Patient - Additional information Additional information: Patient was transported to [facility] on the of this month for an inferior STEMI. He had 2 stents placed, both in the RCA. He was discharged 3 days ago. He has had migratory chest and abdominal pains ever since and notes that his blood sugars been high near 170. He has some confusion about how his meter works, he says that his primary care physician told him that his insulin should be administered intramuscularly and not subcutaneously. He is on metformin but only on half the dose his physician wanted him on because it gives him diarrhea. Pain is mild right now and in the right lower chest. It seems to move around a lot. He denies shortness of breath or nausea or sweats. Review of Systems Ten Systems: 10 systems reviewed and negative Constitutional: reports: Reviewed and negative Throat: denies: Dental pain / toothache, Sore throat Cardiac: denies: Pedal edema, Calf pain Respiratory: denies: Dyspnea, Cough, Hemoptysis, Wheezing PD PAST MEDICAL HISTORY - Past Medical History Cardiovascular: Hypertension Respiratory: COPD Neuro: None Endocrine/Autoimmune: Type 2 diabetes GI: GERD, Other : None HEENT: None Psych: Depression Musculoskeletal: None Derm: None - Past Surgical History Past Surgical History: Yes Ortho: Shoulder arthroplasty - Present Medications Home Medications: Ambulatory Orders Medication Instructions Recorded Confirmed metFORMIN [Glucophage] 1,000 mg ORAL BID #120 tablet 07/22/16 09/22/17 Aripiprazole [Abilify] 20 mg PO DAILY 08/29/17 09/22/17 lisinopriL [Lisinopril] 10 mg PO DAILY 08/29/17 08/29/17 raNITIdine [Zantac] 150 mg PO DAILY 08/29/17 08/29/17 Albuterol Sulf [Ventolin Hfa 1 - 2 puffs INH Q4HR PRN #1 inhaler 09/22/17 Inhaler] Hydrocodone/Acetaminophen 1 - 2 each PO Q6HR PRN #14 tablet 04/03/18 [Hydrocodon-Acetaminophen 5-325] Chlorhexidine Gluconate [Peridex] 15 ml MM TID #118 ml 12/26/19 Clindamycin HCl [Clindamycin 300MG 300 mg PO TID #20 capsule 12/26/19 CAP] Ibuprofen [Motrin] 600 mg PO TID PRN #25 tab 12/26/19 Oxycodone HCl/Acetaminophen 1 each PO Q8H PRN #15 tablet 12/26/19 [Percocet 5-325 mg Tablet] Glipizide [Glipizide ER] 5 mg PO DAILY #30 tab.er.24 02/25/20 - Allergies Allergies/Adverse Reactions: Allergies Allergy/AdvReac Type Severity Reaction Status Date / Time codeine AdvReac Itching Verified 12/26/19 13:56 - Social History Does the pt smoke?: Yes Smoking Status: Current every day smoker Does the pt drink ETOH?: No Does the pt have substance abuse?: Yes - Immunizations Immunizations are current?: No - POLST Patient has POLST: No PD ED PE NORMAL - Vitals Vital signs reviewed: Yes - General General: Alert and oriented X 3, No acute distress - HEENT HEENT: PERRL, EOMI - Neck Neck: Supple, no meningeal sign, No bony TTP - Cardiac Cardiac: RRR, No murmur - Respiratory Respiratory: No respiratory distress, Clear bilaterally - Abdomen Abdomen: Normal bowel sounds, Soft, Non tender - Back Back: No CVA TTP, No spinal TTP - Derm Derm: Normal color, Warm and dry - Extremities Extremities: No edema, No calf tenderness / cord - Neuro Neuro: Alert and oriented X 3, Normal speech Results - Vitals Vitals: Vital Signs - 24 hr 02/25/20 14:02 Temperature 35.8 C L Heart Rate 91 Respiratory 16 Rate Blood Pressure 136/90 H O2 Saturation 97 Oxygen O2 Source Room air - EKG (time done) 1412 Rate: Rate (enter#) (66) Rhythm: NSR [place]: Normal Intervals: Normal [place] QRS: Normal Ischemia: Normal ST segments Computer interpretation: Agree with computer - Labs Labs: Laboratory Tests 02/25/20 02/25/20 02/25/20 14:12 14:35 14:35 WBC 10.9 H RBC 5.48 Hgb 17.0 Hct 49.3 MCV 90.0 MCH 31.0 MCHC 34.5 RDW 11.9 L Plt Count 334 MPV 9.5 Neut # (Auto) 6.7 H Lymph # (Auto) 2.6 [place] # (Auto) 1.0 Eos # (Auto) 0.3 Baso # (Auto) 0.1 Absolute Nucleated RBC 0.00 Nucleated RBC % 0.0 Sodium 136 Potassium 3.9 Chloride 100 L Carbon Dioxide 26 Anion Gap 10.0 BUN 18 Creatinine 0.7 Estimated GFR (MDRD) 115 Glucose 143 H Calcium 9.2 Total Bilirubin 1.1 H AST 15 ALT 26 Alkaline Phosphatase 71 Troponin I High Sens 61.7 H* Total Protein 7.4 Albumin 4.0 Globulin 3.4 Albumin/Globulin Ratio 1.2 Lipase 25 - Rads (name of study) 1v chest Radiology: EMP read contemporaneously (NAD) PD MEDICAL DECISION MAKING - ED course ED course: 59-year-old gentleman who complains of migratory very atypical chest pains since discharge for an CT 3 days ago with stents in place. His EKG is not ischemic. He is also worried about his blood sugar. Discussed with him that he can slightly increase his dose of Lantus until his blood sugars controlled but probably should go back to subcutaneous. We can also add glipizide. Discussed case with Dr Bruce at [facility]. He reviewed cath report, mild (30%) LAD residual. Cx was clear. RCA stented. Chandler there was really no significant need for further work-up for this since he is clearly not having in-stent restenosis given the lack of heart findings and was not too concerned about the minimal troponin elevation. Departure - Departure Disposition: 01 Home, Self Care Clinical Impression: Atypical chest pain Condition: Good Record reviewed to determine appropriate education?: Yes Instructions: ED Chest Pain Atypical Unkn Cause Prescriptions: Glipizide [Glipizide ER] 5 mg PO DAILY #30 tab.er.24 Comments: You can stop the metformin and start the glipizide instead. This may decrease some of your GI symptoms from the metformin and hopefully improve your blood sugar control. I agree with you probably go back to putting your Lantus in the subcutaneous tissue as opposed to the muscle of your thigh. Return for new or worsening symptoms. Continue your efforts to quit smoking. Follow-up with your primary care physician and cash applications analyst as recommended on discharge from [facility].
--- NOTE | 2020-02-25 14:45 | XRAY Report ---
PROCEDURE: Chest 1 View X-Ray INDICATIONS: Chest Pain TECHNIQUE: One view of the chest was acquired. COMPARISON: 09/22/2017 FINDINGS: Surgical changes and devices: None. Lungs and pleura: No pleural effusions or pneumothorax. Lungs are clear. Mediastinum: Mediastinal contours appear normal. Heart size is normal. Bones and chest wall: No suspicious bony lesions. Chronic right AC separation. Overlying soft tissu es appear unremarkable. IMPRESSION: No acute process. Reviewed by: Allyssa Ba MD on 02/25/2020 1:44 PM AKDT Approved by: Allyssa Ba MD on 02/25/2020 1:44 PM AKDT Station ID: [id number]
[2020-02-25 14:59] LABS: ALBUMIN/GLOBULIN RATIO 1.2 (1.0-2.2); BILIRUBIN,TOTAL 1.1 mg/dL (0.2-1.0); CALCIUM 9.2 mg/dL (8.5-10.3); CREATININE 0.7 mg/dL (0.6-1.2); TOTAL PROTEIN 7.4 g/dL (6.7-8.2)
[2020-02-25] MEDS ORDERED: glipiZIDE 5 MG TABLET PO STA (15:43)
[2020-02-25 16:07] VITALS: BP 140/88
== END 2020-02-25 16:07 | disposition home or self-care (01) ==
LOC: ED 13:59
DX: R07.89 Other chest pain (principal); I25.2 Old myocardial infarction; Z95.5 Presence of coronary angioplasty implant and graft; E11.9 Type 2 diabetes mellitus without complications; Z79.4 Long term (current) use of insulin; I10 Essential (primary) hypertension; F17.200 Nicotine dependence, unspecified, uncomplicated
CPT/HCPCS: 36415; 71045; 80053; 83690; 84484; 85025; 93005; 99284; A9270

== ENCOUNTER 2020-10-04 14:01 | Outpatient (CLI) | payer MEDICAID ==
[2020-10-04 14:26] LABS: BASOPHILS # (AUTO) 0.1 10^3/uL (0.0-0.1); BASOPHILS % (AUTO) 0.7 %; EOSINOPHILS # (AUTO) 0.2 10^3/uL (0.0-0.7); HCT - HEMATOCRIT 45.5 % (42.0-52.0); HGB - HEMOGLOBIN 16.1 g/dL (14.0-18.0); LYMPHOCYTES # (AUTO) 2.7 10^3/uL (1.5-3.5); LYMPHOCYTES % (AUTO) 22.6 %; MEAN CORPUSCULAR HGB CONC 35.4 g/dL (32.0-36.0); MEAN CORPUSCULAR VOLUME 87.5 fL (80.0-94.0); MEAN PLATELET VOLUME 8.6 fL (7.4-11.4); MONOCYTES # (AUTO) 0.9 10^3/uL (0.0-1.0); MONOCYTES % (AUTO) 7.7 %; NEUTROPHILS # (AUTO) 7.8 10^3/uL (1.5-6.6); NEUTROPHILS % (AUTO) 66.3 %; PLT - PLATELET COUNT 347 10^3/uL (130-450); RED CELL DISTRIBUTION WIDTH 11.5 % (12.0-15.0); WHITE BLOOD COUNT 11.8 x10^3/uL (4.8-10.8)
[2020-10-04 14:32] LABS: INR 1.1 (0.8-1.2); PT - PROTHROMBIN TIME 12.3 secs (9.9-12.6)
[2020-10-04 14:37] LABS: CREATININE,URINE 48.3 mg/dL; MICROALBUMIN,URINE < 0.2 mg/dL (0-300.0)
[2020-10-04 14:39] LABS: CALCIUM 9.3 mg/dL (8.5-10.3); CREATININE 0.8 mg/dL (0.6-1.2); POTASSIUM 4.3 mmol/L (3.5-5.0)
[2020-10-04 20:53] LABS: ESTIMATED AVERAGE GLUCOSE 200 mg/dL (70-100); HEMOGLOBIN A1c% 8.6 % (4.27-6.07)
== END 2020-10-04 14:02 | disposition home or self-care (01) ==
LOC: LAB 14:01
PROVIDERS: ATTEND Nurse Practitioner Family
DX: E11.40 Type 2 diabetes mellitus with diabetic neuropathy, unspecified (principal); Z95.828 Presence of other vascular implants and grafts
CPT/HCPCS: 36415; 80048; 82043; 82570; 83036; 85025; 85610

== ENCOUNTER 2020-10-04 14:25 | Emergency (ER) | payer MEDICAID ==
--- OUTSIDE RECORDS SUMMARY | 2020-10-04 14:33 | EXTERNAL MEDICAL SUMMARY RPT | Continuity of Care Document ---
:1960 Demographics Phone Unavailable Preferred Language Unknown Marital Status Unknown Restoration Affiliation Unknown Race Unknown Ethnic Group Unknown Author Organization [facility] Address [address] [place] [address] Phone Social History date description facility [id number]
[2020-10-04 14:34] VITALS: BP 112/64
--- NOTE | 2020-10-04 14:38 | ED Physician Documentation ---
History of Present Illness - Stated complaint Stated Complaint: left sided tooth px - Chief complaint Chief Complaint: Heent - History obtained from History obtained from: Patient - History of Present Illness Timing: Today Pain level max: 7 Pain level now: 6 - Additonal information Additional information: Patient is a 60-year-old male who presents to the emergency department ongoing dental pain. He states is been ongoing for some time, now increased swelling and pain. He states that he is waiting for his teeth to get pulled but he is on a blood thinner now from a heart attack and states that he does not want the dentist to do it until he is off of the blood thinner. He is not having fevers or chills. Has not taken anything for this. Does smoke. Worse with eating and drinking. Nothing makes it better. Review of Systems Constitutional: denies: Fever, Chills Nose: denies: Rhinorrhea / runny nose, Congestion Respiratory: denies: Cough Skin: denies: Rash PD PAST MEDICAL HISTORY - Past Medical History Cardiovascular: Hypertension Respiratory: COPD Neuro: None Endocrine/Autoimmune: Type 2 diabetes GI: GERD, Other : None HEENT: None Psych: Depression Musculoskeletal: None Derm: None - Past Surgical History Past Surgical History: Yes Ortho: Shoulder arthroplasty - Present Medications Home Medications: Ambulatory Orders Medication Instructions Recorded Confirmed metFORMIN [Glucophage] 1,000 mg ORAL BID #120 tablet 07/22/16 09/22/17 ARIPiprazole [Abilify] 20 mg PO DAILY 08/29/17 09/22/17 lisinopriL [Lisinopril] 10 mg PO DAILY 08/29/17 08/29/17 raNITIdine [Zantac] 150 mg PO DAILY 08/29/17 08/29/17 Albuterol Sulf [Ventolin Hfa 1 - 2 puffs INH Q4HR PRN #1 inhaler 09/22/17 Inhaler] Hydrocodone/Acetaminophen 1 - 2 each PO Q6HR PRN #14 tablet 04/03/18 [Hydrocodon-Acetaminophen 5-325] Chlorhexidine Gluconate [Peridex] 15 ml MM TID #118 ml 12/26/19 Clindamycin HCl [Clindamycin 300MG 300 mg PO TID #20 capsule 12/26/19 CAP] Ibuprofen [Motrin] 600 mg PO TID PRN #25 tab 07/24/20 Oxycodone HCl/Acetaminophen 1 each PO Q8H PRN #15 tablet 12/26/19 [Percocet 5-325 mg Tablet] Glipizide [Glipizide ER] 5 mg PO DAILY #30 tab.er.24 02/25/20 Amox/Clav 875/125 [Augmentin] 1 tab PO Q12H #20 tablet 10/04/20 traMADol [Ultram] 50 - 100 mg PO Q6H #14 tablet 10/04/20 - Allergies Allergies/Adverse Reactions: Allergies Allergy/AdvReac Type Severity Reaction Status Date / Time codeine AdvReac Itching Verified 10/04/20 14:31 - Social History Does the pt smoke?: Yes Smoking Status: Current every day smoker Does the pt drink ETOH?: No Does the pt have substance abuse?: Yes - Immunizations Immunizations are current?: No - POLST Patient has POLST: No PD ED PE NORMAL - Vitals Vital signs reviewed: Yes - General General: Alert and oriented X 3, No acute distress - HEENT HEENT: Moist mucous membranes, Other (Very poor dentition throughout. There are multiple areas of gingival swelling without lesly abscess. Normal phonation. No trismus. Multiple missing teeth.) - Neck Neck: Supple, no meningeal sign - Cardiac Cardiac: RRR - Respiratory Respiratory: No respiratory distress, Clear bilaterally - Derm Derm: Warm and dry - Neuro Neuro: Alert and oriented X 3 - Psych Psych: Normal mood, Normal affect Results - Vitals Vitals: Vital Signs - 24 hr 10/04/20 14:31 Temperature 36.5 C Heart Rate 60 Respiratory 16 Rate Blood Pressure 112/64 O2 Saturation 97 Oxygen O2 Source Room air PD MEDICAL DECISION MAKING - ED course Complexity details: reviewed results, re-evaluated patient, considered differential, d/w patient ED course: Patient with very poor dentition and dental caries. There are possible early gingival abscesses as well, however these are not ready to be drained yet in the emergency department. We will place him on antibiotics and recommend that he follow-up very closely with his dentist. Patient counseled regarding signs and symptoms for which I believe and urgent re-evaluation would be necessary. Patient with good understanding of and agreement to plan and is comfortable going home at this time This document was made in part using voice recognition software. While efforts are made to proofread this document, sound alike and grammatical errors may occur. Departure - Departure Disposition: 01 Home, Self Care Clinical Impression: Dental infection Condition: Good Instructions: ED Tooth Pain Follow-Up: GOVIND PISANO, MSN, [facility] [Primary Care Provider] - Within 1 week Prescriptions: Amox/Clav 875/125 [Augmentin] 1 tab PO Q12H #20 tablet traMADol [Ultram] 50 - 100 mg PO Q6H #14 tablet Comments: It is important that you see your dentist as soon as possible to have your teeth taken care of. All antibiotics until gone.
[2020-10-04] MEDS ORDERED: AMOX/CLAV 875 MG/125 MG TABLET PO STA (14:45)
== END 2020-10-04 15:06 | disposition home or self-care (01) ==
LOC: ED 14:25
DX: K04.7 Periapical abscess without sinus (principal); K02.9 Dental caries, unspecified; E11.9 Type 2 diabetes mellitus without complications; Z79.84 Long term (current) use of oral hypoglycemic drugs; I10 Essential (primary) hypertension; Z79.01 Long term (current) use of anticoagulants; F17.200 Nicotine dependence, unspecified, uncomplicated
CPT/HCPCS: 36415; 80048; 82043; 82570; 83036; 85025; 85610; 99282; 99284; A9270

== ENCOUNTER 2021-05-12 13:55 | Outpatient (CLI) | payer MEDICAID ==
--- NOTE | 2021-05-13 10:01 | CT Report ---
PROCEDURE: CHEST WO INDICATIONS: MULTIPLE LUNG NODULES TECHNIQUE: Noncontrast 1mm axial images were acquired from the pulmonary apices to the posterior costophrenic an gles. Axial 5 mm soft tissue kernel reconstructions were performed as well as 8 mm axial MIP and cor onal and sagittal 5 mm reformations. For radiation dose reduction, the following was used: automate d exposure control, adjustment of mA and/or kV according to patient size. COMPARISON: Chest CT, 05/29/2019. FINDINGS: Image quality: Excellent. Lungs and pleura: Lung nodule (s) are listed in the following: Nodule 1: 2 mm; left lower lobe; series 4 image 178; unchanged. Previously described right middle lobe nodule is not identified on the current exam. No acute air space opacities. No pleural effusions or pneumothorax. Central and peripheral airways are patent and normal in caliber. Mediastinum: Heart size is normal. No pericardial effusion. Severe coronary artery calcification. No mediastinal adenopathy by size criteria. Thoracic aorta and central pulmonary arteries are normal in size. Esophagus is normal in caliber. Tiny hiatal hernia. Bones and chest wall: No suspicious bony lesions. No vertebral body compression fractures. No axil pasha or supraclavicular adenopathy by size criteria. The thyroid is normal in size and there are no incidental findings. Abdomen: Visualized upper abdominal solid organs and bowel loops appear normal in the absence of con trast. IMPRESSION: 1. Small left lower lobe nodule. ACR lung RADS category 2. Recommend annual screening lung CT if clin ically indicated. Reviewed by: Loraine Rogers MD on 05/13/2021 9:59 AM PST Approved by: Loraine Rogers MD on 05/13/2021 9:59 AM PST Station ID: [id number]
== END 2021-05-12 13:56 | disposition home or self-care (01) ==
LOC: DI 13:55
PROVIDERS: ATTEND Internal Medicine
DX: R91.1 Solitary pulmonary nodule (principal)

== ENCOUNTER 2021-10-12 11:36 | Outpatient (CLI) | payer MEDICAID ==
[2021-10-12 12:00] LABS: BASOPHILS # (AUTO) 0.1 10^3/uL (0.0-0.1); BASOPHILS % (AUTO) 0.9 %; EOSINOPHILS # (AUTO) 0.3 10^3/uL (0.0-0.7); EOSINOPHILS % (AUTO) 2.4 %; HCT - HEMATOCRIT 46.2 % (42.0-52.0); HGB - HEMOGLOBIN 16.2 g/dL (14.0-18.0); LYMPHOCYTES # (AUTO) 2.7 10^3/uL (1.5-3.5); LYMPHOCYTES % (AUTO) 20.9 %; MEAN CORPUSCULAR HGB CONC 35.1 g/dL (32.0-36.0); MEAN CORPUSCULAR VOLUME 88.5 fL (80.0-94.0); MEAN PLATELET VOLUME 9.2 fL (7.4-11.4); MONOCYTES # (AUTO) 1.1 10^3/uL (0.0-1.0); MONOCYTES % (AUTO) 8.8 %; NEUTROPHILS # (AUTO) 8.6 10^3/uL (1.5-6.6); NEUTROPHILS % (AUTO) 66.5 %; PLT - PLATELET COUNT 296 10^3/uL (130-450); RED BLOOD COUNT 5.22 10^6/uL (4.70-6.10); RED CELL DISTRIBUTION WIDTH 11.8 % (12.0-15.0)
[2021-10-12 12:16] LABS: MICROALBUM/CREATININE RATIO,UR 7.3 ug/mg (<30.0); MICROALBUMIN,URINE 2.3 mg/dL (0-300.0)
[2021-10-12 12:19] LABS: ALBUMIN 3.9 g/dL (3.2-5.5); ALBUMIN/GLOBULIN RATIO 1.2 (1.0-2.2); ALKALINE PHOSPHATASE 69 IU/L (42-121); ALT ALANINE AMINOTRANSFERASE 16 IU/L (10-60); AST ASPARTATE AMINOTRANSFERASE 14 IU/L (10-42); BILIRUBIN,TOTAL 0.7 mg/dL (0.2-1.0); BUN - BLOOD UREA NITROGEN 27 mg/dL (6-20); CALCIUM 9.1 mg/dL (8.5-10.3); CARBON DIOXIDE - CO2 27 mmol/L (21-32); CHLORIDE 101 mmol/L (101-111); CHOL/HDL RATIO 2.9 (<5.0); CHOLESTEROL 101 mg/dL; CREATININE 0.8 mg/dL (0.6-1.2); GFR - MDRD 98 (>89); GLUCOSE 191 mg/dL (70-100); HDL CHOLESTEROL 35 mg/dL; LDL CHOLESTEROL,CALCULATED 54 mg/dL; LDL/HDL RATIO 1.5 (<3.6); POTASSIUM 3.7 mmol/L (3.5-5.0); SODIUM 138 mmol/L (135-145); TOTAL PROTEIN 7.1 g/dL (6.7-8.2); TRIGLYCERIDES 62 mg/dL; VLDL CHOLESTEROL 12 mg/dL
[2021-10-12 12:25] LABS: ESTIMATED AVERAGE GLUCOSE 229 mg/dL (70-100); HEMOGLOBIN A1c% 9.6 % (4.27-6.07)
[2021-10-12 12:29] LABS: THYROID STIMULATING HORMONE 1.87 uIU/mL (0.34-5.60)
== END 2021-10-12 11:37 | disposition home or self-care (01) ==
LOC: LAB 11:36
PROVIDERS: ATTEND Nurse Practitioner Family
DX: E11.40 Type 2 diabetes mellitus with diabetic neuropathy, unspecified (principal); I25.10 Atherosclerotic heart disease of native coronary artery without angina pectoris; E78.2 Mixed hyperlipidemia; Z12.5 Encounter for screening for malignant neoplasm of prostate; Z95.5 Presence of coronary angioplasty implant and graft
CPT/HCPCS: 36415; 80050; 80061; 82043; 82570; 83036; 83721; 84153

== ENCOUNTER 2022-06-07 13:04 | Outpatient (CLI) | payer MEDICAID ==
[2022-06-07 13:39] LABS: ESTIMATED AVERAGE GLUCOSE 249 mg/dL (70-100); HEMOGLOBIN A1c% 10.3 % (4.27-6.07)
[2022-06-07 14:02] LABS: ALBUMIN 3.7 g/dL (3.2-5.5); ALKALINE PHOSPHATASE 72 IU/L (42-121); ALT ALANINE AMINOTRANSFERASE 19 IU/L (10-60); AST ASPARTATE AMINOTRANSFERASE 15 IU/L (10-42); BUN - BLOOD UREA NITROGEN 20 mg/dL (6-20); CHOL/HDL RATIO 2.5 (<5.0); CHOLESTEROL 91 mg/dL; CREATININE 0.7 mg/dL (0.6-1.2); GFR - MDRD 115 (>89); HDL CHOLESTEROL 37 mg/dL; LDL CHOLESTEROL,CALCULATED 43 mg/dL; LDL/HDL RATIO 1.2 (<3.6); TOTAL PROTEIN 7.3 g/dL (6.7-8.2); TRIGLYCERIDES 55 mg/dL; VLDL CHOLESTEROL 11 mg/dL
[2022-06-07 14:08] LABS: CALCIUM 9.1 mg/dL (8.5-10.3); CARBON DIOXIDE - CO2 27 mmol/L (21-32); CHLORIDE 98 mmol/L (101-111); GLUCOSE 165 mg/dL (70-100); POTASSIUM 3.9 mmol/L (3.5-5.0); SODIUM 137 mmol/L (135-145)
== END 2022-06-07 13:05 | disposition home or self-care (01) ==
LOC: LAB 13:04
PROVIDERS: ATTEND Internal Medicine
DX: E11.42 Type 2 diabetes mellitus with diabetic polyneuropathy (principal)
CPT/HCPCS: 36415; 80053; 80061; 83036; 83721

== ENCOUNTER 2023-06-26 15:49 | Outpatient (CLI) | payer MEDICAID ==
--- NOTE | 2023-06-26 16:43 | XRAY Report ---
PROCEDURE: Shoulder 2+V BL INDICATIONS: BILATERAL SHOULDER IMPINGEMENT SYNDROME TECHNIQUE: 3 views of the shoulders were acquired. COMPARISON: None. FINDINGS: Bones: No fractures or dislocations. No suspicious bony lesions. Visualized ribs appear intact. Right distal clavicle resection. Superior subluxation of the humerus. Right-sided glenohumeral joint space narrowing and mild osteophytic lipping of the glenoid. On the left side, there is glenohumeral and acromioclavicular joint space narrowing with associated osteophytosis. Soft tissues: No suspicious soft tissue calcifications. The visualized lungs are within normal limi ts. IMPRESSION: Moderate bilateral shoulder osteoarthritis. Superior subluxation of the right humerus, suggestive of chronic rotator cuff injury. Reviewed by: Macario Castillo MD on 06/26/2023 4:42 PM PST Approved by: Macario Castillo MD on 06/26/2023 4:42 PM PST Station ID: [id number]
--- NOTE | 2023-06-26 17:07 | CT Report ---
PROCEDURE: Lung Cancer Screen INDICATIONS: TOBACCO ABUSE TECHNIQUE: A CT scan of the chest was performed. Intravenous contrast media was not administered. Images were re corded and evaluated at appropriate window settings. Reformats: axial MIP of the chest, coronal and s agittal. For radiation dose reduction, the following was used: automated exposure control, adjustment of mA and/or kV according to patient size. COMPARISON: None. FINDINGS: Image quality: Excellent. Prior cancer history: Unsure. Lungs and pleura: No pleural effusions. No pneumothorax. No suspicious pulmonary nodules which requi re follow up. Mediastinum: Heart size is normal. No pericardial effusion. No large vessel abnormality. No mediastin al adenopathy by size criteria. Three vessel coronary artery calcifications. Small hiatal hernia. Chest wall and lower neck: Thyroid is unremarkable. No axillary or supraclavicular adenopathy by size . Bones: No aggressive osseous abnormality. Upper Abdomen: Unremarkable. IMPRESSION: Lung RAD: 1 - Negative. Recommendation: Continue annual screening in 12 Months with LDCT Non-Lung Significant Findings: Coronary Arterial Calcification - Moderate or Severe. Consider cardiol ogy referral. Reviewed by: Macario Castillo MD on 06/26/2023 5:05 PM PST Approved by: Macario Castillo MD on 06/26/2023 5:05 PM PST Station ID: [id number]
== END 2023-06-26 15:50 | disposition home or self-care (01) ==
LOC: DI 15:49
PROVIDERS: ATTEND Internal Medicine
DX: Z12.2 Encounter for screening for malignant neoplasm of respiratory organs (principal); F17.210 Nicotine dependence, cigarettes, uncomplicated; M19.012 Primary osteoarthritis, left shoulder; M19.011 Primary osteoarthritis, right shoulder; S43.001A Unspecified subluxation of right shoulder joint, initial encounter; I25.10 Atherosclerotic heart disease of native coronary artery without angina pectoris

== ENCOUNTER 2024-02-01 19:34 | Outpatient (CLI) | payer MEDICAID | END 2024-02-01 19:35 | disposition left against medical advice (07) | LOC: EMS 19:34 | DX: R11.2 Nausea with vomiting, unspecified (principal); R53.1 Weakness; R42 Dizziness and giddiness ==